=== PATIENT | male | born 1970 | race Two or more races ===

== ENCOUNTER → 2024-11-30 | Emergency (ER) | payer OTHER ==
[~2024-11-30] VITALS: Ht 185.4 cm; Wt 68.0 kg
[~2024-11-30] MED LIST: CEFTRIAXONE SODIUM 1,000 MG VIAL IM ONE; KETOROLAC TROMETHAMINE 10 MG TABLET PO ONE; LOTRIMIN ULTRA12 GM TOP; NIX59 M1 TOP
== END | disposition home or self-care (01) ==
LOC: ER 12:13
DX: B35.3 Tinea pedis (principal); B86 Scabies

== ENCOUNTER → 2025-01-06 | Emergency (ER) | payer OTHER ==
[~2025-01-06] MED LIST changes: -CEFTRIAXONE SODIUM 1,000 MG VIAL IM ONE; -KETOROLAC TROMETHAMINE 10 MG TABLET PO ONE
== END | disposition left against medical advice (07) ==
LOC: ER 11:28
DX: Z53.21 Procedure and treatment not carried out due to patient leaving prior to being seen by health care provider (principal)